=== PATIENT | female | born 1955 | race Caucasian/White ===

== ENCOUNTER 2018-01-21 12:28 | Outpatient (CLI) | payer OTHER | END 2018-01-21 12:29 | disposition home or self-care (01) | LOC: BICCT 12:28 | PROVIDERS: ATTEND Physician Assistant Surgical | DX: M54.2 Cervicalgia (principal); M54.6 Pain in thoracic spine; R29.818 Other symptoms and signs involving the nervous system; M47.896 Other spondylosis, lumbar region; M48.061 Spinal stenosis, lumbar region without neurogenic claudication; M47.892 Other spondylosis, cervical region | CPT/HCPCS: 70450; 72050; 72110; 72141; 72146; 72148 ==

== ENCOUNTER 2018-01-28 08:22 | Outpatient (CLI) | payer OTHER ==
[2018-01-28] MEDS ORDERED: Gadobenate Dimeglumine 529 MG/1 ML (20ML VIAL) ONE (14:36)
== END 2018-01-28 08:23 | disposition home or self-care (01) ==
LOC: BICMRI 08:22
PROVIDERS: ATTEND Family Medicine
DX: R51 Headache (principal); R26.0 Ataxic gait; M62.81 Muscle weakness (generalized); I67.82 Cerebral ischemia
CPT/HCPCS: 70553; A9579

== ENCOUNTER 2018-10-15 07:34 | Outpatient (CLI) | payer OTHER ==
--- NOTE | 2018-10-15 09:58 | CT ---
CT OF THE CHEST WITHOUT CONTRAST: Comparison: None. History: Low dose cancer screening protocol. 42-year smoking history. The patient quit smoking 11 mon ths ago. Productive cough. Technique: Multiple contiguous axial images were obtained in a CT of the chest without contrast per l ow dose cancer screening protocol. Sagittal and coronal reformats were performed. FINDINGS: A calcified granuloma projects over the right lower lobe. No other pulmonary nodules are seen. No pne umothorax or pleural effusions are seen. No focal infiltrates are present. The heart is normal in siz e. No hilar or mediastinal lymphadenopathy are appreciated on this limited noncontrast examination. Degenerative changes are seen in the spine. The visualized subdiaphragmatic structures and chest wall soft tissues are unremarkable. IMPRESSION: Lung RADS category 1 - negative. POS: LONIH
== END 2018-10-15 07:35 | disposition home or self-care (01) ==
LOC: CT 07:34
PROVIDERS: ATTEND Family Medicine
DX: Z87.891 Personal history of nicotine dependence (principal)
CPT/HCPCS: G0297

== ENCOUNTER 2018-10-17 13:09 | Outpatient (CLI) | payer OTHER | END 2018-10-17 13:10 | disposition home or self-care (01) | LOC: BICMAMMO 13:09 | PROVIDERS: ATTEND Family Medicine | DX: Z12.31 Encounter for screening mammogram for malignant neoplasm of breast (principal) | CPT/HCPCS: 77063; 77067 ==

== ENCOUNTER 2019-02-13 14:37 | Observation (INO) | payer OTHER ==
--- NOTE | 2019-02-13 15:22 | CT ---
Head CT without contrast 02/13/2019: COMPARISON: 01/21/2018 HISTORY: Altered mental status, confusion, falls TECHNIQUE: Axial CT imaging at 5 mm intervals from vertex through skull base without contrast FINDINGS: Imaged paranasal sinuses and mastoid air cells well-aerated. No displaced calvarial fractur e. Prominence of the ventricular system noted, stable. Mild cerebral volume loss. No intracranial hemorrhage, midline shift, or mass effect. There is a small round soft tissue density along the anter ior aspect of the parotid gland on the left measuring 5 mm, likely representing a small node. IMPRESSION: Stable prominence of the ventricular system. This could potentially be on the basis of no rmal pressure hydrocephalus in the proper clinical setting. No intracranial hemorrhage.
[2019-02-13 16:00] LABS: #Basophils 0.1 thou/uL (0.0-0.2); #Eosinphils 0.2 thou/uL (0.0-0.7); #Monocytes 0.6 thou/uL (0.11-0.59); #Neutrophils 3.5 thou/uL (1.40-6.50); %Basophils 0.9 % (0.0-1.0); %Eosinophils 2.8 % (0.0-10.0); %Lymphocytes 31.3 % (21.0-51.0); %Monocytes 9.2 % (0.0-10.0); %Neutrophils 55.8 % (42.0-75.0); Hemoglobin 14.8 g/dL (12.0-16.0); Mean Corpuscular HGB CONC 33.2 g/dL (32.0-36.0); Mean Corpuscular Volume 93.4 fL (78.0-98.0); Mean Platelet Volume 7.6 fL (7.4-10.4); Platelet Count 186 thou/uL (130-400); RBC Distribution Width 11.4 % (11.5-14.5); Red Blood Cell (RBC) Count 4.78 mill/uL (4.20-5.40); White Blood Cell (WBC) Count 6.3 thou/uL (4.8-10.8)
[2019-02-13 16:20] LABS: Acetaminophen Less than 6.0 mcg/mL (10.0-30.0); Alcohol Less than 10 mg/dL (Less than 10); Salicylate Less than 8.0 mg/dL (15.0-30.0)
[2019-02-13 16:22] LABS: ALT (SGPT) 25 U/L (8-55); AST (SGOT) 19 U/L (5-34); Albumin 3.9 g/dL (3.4-4.8); Alkaline Phosphatase 74 U/L (40-150); Anion Gap 10 mmol/L (10-20); BUN (Urea Nitrogen) 18 mg/dL (9.8-20.1); Bilirubin, Total 0.4 mg/dL (0.2-1.2); Calc. Creatinine Clearance 0 mL/min (70-130); Calcium 9.2 mg/dL (7.8-10.44); Carbon Dioxide 29 mmol/L (23-31); Chloride 100 mmol/L (98-107); Estimated GFR-MDRD 74; Globulin 2.7 g/dL (2.4-3.5); Glucose 83 mg/dL (80-115); Protein, Total 6.6 g/dL (6.0-8.3); Sodium 135 mmol/L (136-145)
[2019-02-13 18:33] LABS: Amphetamine Not Detected (NotDetected); Barbiturates Screen Not Detected (NotDetected); Benzodiazepine Screen Not Detected (NotDetected); Cocaine Metabolite Screen Not Detected (NotDetected); Medtox Control Line Valid? VALID (VALID); Medtox Reader # READER 1; Methadone Not Detected (NotDetected); Methamphetamine Not Detected (NotDetected); Opiate Screen Not Detected (NotDetected); Oxycodone Screen Not Detected (NotDetected); Phencyclidine (PCP) Not Detected (NotDetected); THC/Cannabinoid Screen Not Detected (NotDetected); Tricyclic Screen Not Detected (NotDetected)
--- NOTE | 2019-02-13 20:01 | PDOC.FPRHP ---
Addendum entered and electronically signed by Ericka Luther MD 02/14/19 00:58 : a/p: suprath. valproic acid: pt states she takes 2 250mg tabs, will dec to one 250mg tab qhs Original Note: - History of Present Illness Chief Complaint: confusion History of Present Illness: 63 yo F brought in by EMS for confusion. Was at bank this morning when per ERMD pt became confused and bank guard felt concerned so called EMS. CT brain was neg for ICH but showed possible normal pressure hydrocephalus. ERMD discussed w / neurosurg said that this could we worked up outpt however there was concern for patient stability w/ hx of confusion & falls so she was admitted. Patient says she's had longstanding hx of falls & confusion and urinary incontinence, being w/u outpt and had a brain MRI/CT scheduled for next month. She is able to perform ADLs, but has inc, instability with walker but no very recent falls. Denies paralysis, seizures, vertigo, focal deficits, recent illnesses. Pt reports she lies alone with no family. Says it's difficult to take care of herself sometimes. - Allergies/Adverse Reactions Allergies Allergy/AdvReac Type Severity Reaction Status Date / Time No Known Drug Allergies Allergy Verified 02/13/19 22:42 - Home Medications Medication Instructions Recorded Confirmed Type Bupropion HCl [buPROPion HCl XL] 150 mg PO BID 10/22/15 02/14/19 History Citalopram Hydrobromide 40 mg PO DAILY 10/22/15 02/13/19 History [Citalopram HBr] Divalproex Sodium ER [Depakote ER] 2 tab PO HS 02/13/19 02/13/19 History Lisinopril 12.5 mg PO DAILY 02/13/19 02/13/19 History Celecoxib [Celebrex] 50 mg PO BID 02/14/19 02/14/19 History Cholecalciferol (Vitamin D3) 1 tab PO DAILY 02/14/19 02/14/19 History [Vitamin D3] traMADol HCl [Tramadol HCl] 1 tab PO PRN PRN 02/14/19 02/14/19 History - History PMHx: bipolar dis., HTN, ulcerative colitis, COPD, HLD PSHx: appendectomy, foot fracture repair FHx: HTN Social: Former 20 pack year history, denies etoh of drug use - Review of Systems General: denies: fever/chills, weight/appetite/sleep changes Eyes: denies: vision changes ENT: denies: nasal congestion, rhinorrhea Respiratory: denies: cough, congestion, shortness of breath Cardiovascular: denies: chest pain, palpitation Gastrointestinal: denies: nausea, vomiting, diarrhea, constipation, GI bleeding Genitourinary: reports: incontinence. denies: dysuria Skin: denies: rashes Musculoskeletal: denies: pain Neurological: reports: other (instability,falls). denies: seizure Psychological: denies: anxiety, depression - Vital signs BP: [116/73] HR: [80] RR: [18] Tmax: [98.1 Pox: [97]% on [RA] Wt: [100kg] - Physical Exam Constitutional: NAD, awake, alert and oriented HEENT: normocephalic and atraumatic, PERRLA Neck: supple, FROM, trachea midline Chest: no-tender to palpation Heart: normal S1/S2 -Heart: systolic murmur Lungs: CTAB, no respiratory distress, no wheezing Abdomen: soft, non-tender, bowel sounds present Musculoskeletal: normal structure, normal tone Neurological: no focal deficit, CN II-XII intact Skin: no rash/lesions, good turgor, capillary refill <2 seconds Heme/Lymphatic: no unusual bruising or bleeding Psychiatric: normal mood and affect, good judgment and insight Additional comment: walking with caution FMR H&P: Results - Labs Result Diagrams: 02/13/19 15:50 02/14/19 06:02 Lab results: WBC 6.3 thou/uL (4.8-10.8) 02/13/19 15:50 Hgb 14.8 g/dL (12.0-16.0) 02/13/19 15:50 Hct 44.7 % (36.0-47.0) 02/13/19 15:50 MCV 93.4 fL (78.0-98.0) 02/13/19 15:50 Plt Count 186 thou/uL (130-400) 02/13/19 15:50 Neutrophils % 55.8 % (42.0-75.0) 02/13/19 15:50 Sodium 135 mmol/L (136-145) L 02/13/19 15:50 Potassium 4.0 mmol/L (3.5-5.1) 02/13/19 15:50 Chloride 100 mmol/L (98-107) 02/13/19 15:50 Carbon Dioxide 29 mmol/L (23-31) 02/13/19 15:50 BUN 18 mg/dL (9.8-20.1) 02/13/19 15:50 Creatinine 0.79 mg/dL (0.6-1.1) 02/13/19 15:50 Glucose 83 mg/dL (80-115) 02/13/19 15:50 Calcium 9.2 mg/dL (7.8-10.44) 02/13/19 15:50 Total Bilirubin 0.4 mg/dL (0.2-1.2) 02/13/19 15:50 AST 19 U/L (5-34) 02/13/19 15:50 ALT 25 U/L (8-55) 02/13/19 15:50 Alkaline Phosphatase 74 U/L (40-150) 02/13/19 15:50 Serum Total Protein 6.6 g/dL (6.0-8.3) 02/13/19 15:50 Albumin 3.9 g/dL (3.4-4.8) 02/13/19 15:50 - Radiology Interpretation Other Status: report reviewed by me Additional comment: brain CT showing neg for ICH, suspected normal pressure hydrocephalus FMR H&P: A/P - Problem List (1) Normal pressure hydrocephalus Current Visit: Yes Status: Acute Code(s): G91.2 - (IDIOPATHIC) NORMAL PRESSURE HYDROCEPHALUS (2) Bipolar II disorder Current Visit: Yes Status: Acute Code(s): F31.81 - BIPOLAR II DISORDER - Plan #Normal pressure hydrocephalus -CT brain showing likely NPH which is consistent with history findings -Neurosurgery consulted, will follow along -Concern for patient unable to care for herself at home, thus making her unsafe to discharge. Will admit and work w/ PT and CM to see best place for patient placement -Admit to medical/obs #Bipolar II Disorder, supratherapeutic depakote level -continue home meds -On valproic acid, levels high will dec dose to 2 tabs qhs (in centricity taking 3 tabs qhs) -Recheck level before next dose #COPD -duonebs PRN #ulcerative colitis - aware dvt ppx: lovenox diet:HH dispo: <2 mn discussed w/ dr. begum FMR H&P: Upper Level - Pertinent history 63 yo CF with PMH of bipolar disorder, ataxic gait and multiple recent falls presenting for some confusion and unsteadiness. Pt reportedly at bank when the director bioinformatics noted she was acting oddly and called EMS. Workup has revealed NPH. ERMD consulted neurosurgery who said can likely be worked up outpatient. Pt, however , lives alone and is not safe for discharge home. - Pertinent findings VSS Gen: confused, however, very pleasant and in NAD CV: RRR Resp: CTAB - Plan Date/Time: 02/13/192000 I, Burt Singletary MD PGY3, have evaluated this patient and agree with findings/ plan as outlined by finance intern resident. Pertinent changes/additions are listed here. 1. Normal Pressure Hydrocephalus -Pt presents with long standing history of clinical symptoms consistent with NPH including cognitive impairment, gait dysfunction, and urinary incontinence. -CT head shows findings consistent with NPH and neurosurgery was consulted by ERMManuela. Recommendation was made to continue work up in outpatient setting, however , pt lives alone and is likely not safe for discharge home. -Will observe overnight and attempt to coordinate care with neurosurgery and case management in the AM regarding disposition for patient care. 2. Supratherapeutic Valproate Level -Decrease dose and continue to monitor. FULL code PPx: SCDs for VTE, no GI indicated. disposition: Admit to observation for anticipated length of stay less than two midnights, pending clinical course. Addendum - Attending - Attending Attestation Date/Time: 02/14/19 0818 I personally evaluated the patient and discussed the management with Dr. Luther last night. I agree with the History, Examination, Assessment and Plan documented above with any addition or exceptions noted below. Patient is not able to safely care for herself independently. Appreciate Neurosurg assessment and intervention as able.
[2019-02-13] MEDS ORDERED: Ondansetron PF 4 MG/2 ML Vial IVP PRN (21:15)
[2019-02-13] MEDS ORDERED: Acetaminophen 325 MG TAB PO PRN (21:15)
[2019-02-13] MEDS ORDERED: Ondansetron ODT 4 MG TAB SL PRN (21:15)
[2019-02-13 21:20] VITALS: BMI 39.3
[2019-02-14 00:02] LABS: Folate (Folic Acid) 5.9 ng/mL (7.0-31.4)
--- NOTE | 2019-02-14 06:47 | PDOC.FM ---
- Subjective Subjective: Ms. Coburn was feeling well this morning. Ambulated to bathroom with assist. Notes she is taking depakote pills as prescribed TID. Says if she wearing a pad then she is not incontinent. Is in a difficult financial situation. Unemployed and says she could be homeless within a few weeks. - Objective MAR Reviewed: Yes Vital Signs & Weight: Vital Signs (12 hours) Temp Pulse Resp BP Pulse Ox 02/14/19 05:01 97.9 F 81 16 114/78 94 L 02/14/19 00:43 97.7 F 80 16 101/61 95 02/13/19 21:04 98.0 F 92 18 105/62 96 Weight Weight 100.698 kg I&O: 02/12/19 02/13/19 02/14/19 06:59 06:59 06:59 Intake Total 520 Balance 520 Result Diagrams: 02/13/19 15:50 02/14/19 06:02 Phys Exam - Physical Examination Constitutional: NAD Respiratory: clear to auscultation bilateral Cardiovascular: RRR, no significant murmur Gastrointestinal: soft, non-tender, no distention Musculoskeletal: no edema unsteady gait Psychiatric: normal affect Skin: normal turgor Dx/Plan (1) Bipolar II disorder Code(s): F31.81 - BIPOLAR II DISORDER Status: Acute (2) Normal pressure hydrocephalus Code(s): G91.2 - (IDIOPATHIC) NORMAL PRESSURE HYDROCEPHALUS Status: Acute - Plan Plan: Normal pressure hydrocephalus -CT brain showing likely NPH which is consistent with symptoms noted in history -Neurosurgery consulted, will follow along -Concern for patient unable to care for herself at home, thus making her unsafe to discharge. Will admit and work w/ PT and CM to see best place for patient placement -Admit to medical/obs Bipolar II Disorder, supratherapeutic depakote level -continue home meds -On valproic acid, levels high dose decreased to 1 tabs qhs (in centricity taking 3 tabs qhs, patient was taking 2 tabs per night team but she now denies that today). -Recheck level before next dose COPD -duonebs PRN dvt ppx: lovenox diet: Addendum - Attending - Attending Attestation Date/Time: 02/14/19 4212 I personally evaluated the patient and discussed the management with Dr. Romo I agree with the History, Examination, Assessment and Plan documented above with any addition or exceptions noted below. Patient lucid this am MMSE with mild cognitive deficit . Patient lives alone in [place] with recent financial stressors. History of recent urinary incontinence and wide based gait suggest possible NPH and trial of therapeutic large volume LP for clinical benefit suggested as outpatient by Neurosurgery. Will complete Dementia work up if not previously done and consult CM for placement options. Bipolar d/o managed by Dr Alva.
[2019-02-14 07:05] LABS: Anion Gap 10 mmol/L (10-20); BUN (Urea Nitrogen) 22 mg/dL (9.8-20.1); Calc. Creatinine Clearance 120 mL/min (70-130); Calcium 8.8 mg/dL (7.8-10.44); Carbon Dioxide 28 mmol/L (23-31); Chloride 103 mmol/L (98-107); Estimated GFR-MDRD 76; Glucose 119 mg/dL (80-115); Potassium 4.1 mmol/L (3.5-5.1); Sodium 137 mmol/L (136-145)
[2019-02-14] MEDS: Lisinopril 5 MG TAB PO SCH (08:39)
[2019-02-14] MEDS: Citalopram 20 MG TAB PO SCH (08:39)
[2019-02-14] MEDS: Enoxaparin Sodium 40 MG/0.4 ML SYRINGE SC SCH (08:40)
[2019-02-14] MEDS: Bupropion 150 MG XL TAB PO SCH ×2 (08:48→20:08)
--- NOTE | 2019-02-14 13:22 | PRG ---
DATE OF SERVICE: 02/14/2019 This is a 30-minute initial hospital visit note, in which 30 minutes were spent reviewing the imaging, record, evaluation, and examination of the patient, formulation of plan. Greater than 50% time spent in counseling on Vanessa Coburn. Ms. Coburn is a very pleasant 63-year-old woman admitted for progressive confusion. Head CT demonstrates prominence of the ventricular system similar to a prior head CT and the patient does endorse that she has had some gait abnormality. There is concern of normal-pressure hydrocephalus while she has a nonfocal exam. What I would like to do is arrange for followup in outpatient psych and go over the imaging with the patient, and we can arrange for formal normal-pressure hydrocephalus workup, which would include high-volume spinal tap and potential shunting if improved, if the patient demonstrates clinical improvement. I have also discussed her care with her Family Medicine colleagues and they will make sure that there are no other areas of concern regarding metabolic causes of her confusion. I will arrange followup in my clinic. She may be dismissed to appropriate disposition whenever deemed preferable by our medical colleagues. Job ID: [id number]
--- NOTE | 2019-02-15 06:51 | PDOC.FM ---
- Subjective Subjective: Ms. Coburn is feeling well this morning. No events overnight. Still unsteady gait. - Objective Vital Signs & Weight: Vital Signs (12 hours) Temp Pulse Resp BP BP Pulse Ox 02/15/19 06:10 97.4 F L 74 16 136/86 95 02/15/19 00:05 97.7 F 74 16 106/74 95 02/14/19 19:34 97.8 F 74 16 118/72 95 02/14/19 19:24 97.8 F 74 16 118/72 95 Weight Weight 100.698 kg I&O: 02/13/19 02/14/19 02/15/19 06:59 06:59 06:59 Intake Total 520 1260 Balance 520 1260 Result Diagrams: 02/13/19 15:50 02/14/19 06:02 Phys Exam - Physical Examination Constitutional: NAD Respiratory: no wheezing, clear to auscultation bilateral Cardiovascular: RRR, no significant murmur Gastrointestinal: soft, non-tender, positive bowel sounds Musculoskeletal: no edema Neurological: moves all 4 limbs wide based shuffling gait Lymphatic: no nodes Psychiatric: normal affect Skin: normal turgor Dx/Plan (1) Bipolar II disorder Code(s): F31.81 - BIPOLAR II DISORDER Status: Acute (2) Normal pressure hydrocephalus Code(s): G91.2 - (IDIOPATHIC) NORMAL PRESSURE HYDROCEPHALUS Status: Acute - Plan Plan: Normal pressure hydrocephalus -CT brain showing likely NPH which is consistent with symptoms noted in history -Neurosurgery consulted, recommend outpatient workup -Concern for patient unable to care for herself at home, she is weak with unsteady gait. Patient yesterday said she wanted to go home instead of rehab so discharge was prepared. However after more discussion will work with case management Bipolar II Disorder, supratherapeutic depakote level -continue home meds -Repeat depakote level in normal range, 60 COPD -duonebs PRN H/p ulcerative colitis - not on any home medications dvt ppx: lovenox diet:HH Dispo: will discuss safe discharge plan with case management Addendum - Attending - Attending Attestation Date/Time: 02/15/19 1013 I personally evaluated the patient and discussed the management with Dr. Romo. I agree with the History, Examination, Assessment and Plan documented above with any addition or exceptions noted below. NPH Recurrent falls- most recently 2-3 days ago. Lives alone without support. Poor home status with no support -Neurosurg recommends outpatient workup. However per PT she is unsafe to go home. No family or friend support and a fall risk. Evaluated by IP rehab today but insurance will need 2-3 days for approval.
[2019-02-15] MEDS: Lisinopril 5 MG TAB PO SCH (09:08)
[2019-02-15] MEDS: Bupropion 150 MG XL TAB PO SCH ×2 (09:08→20:14)
[2019-02-15] MEDS: Citalopram 20 MG TAB PO SCH (09:09)
[2019-02-15] MEDS: Enoxaparin Sodium 40 MG/0.4 ML SYRINGE SC SCH (09:09)
[2019-02-15] MEDS: Folic Acid 1 MG TAB PO SCH (09:10)
--- NOTE | 2019-02-15 14:21 | EKG ---
Test Reason : AMS Blood Pressure : / mmHG Vent. Rate : 091 BPM Atrial Rate : 091 BPM P-R Int : 160 ms QRS Dur : 070 ms QT Int : 366 ms P-R-T Axes : 054 018 061 degrees QTc Int : 450 ms Normal sinus rhythm Septal infarct , age undetermined Abnormal ECG Confirmed by BEATRIZ CHICAS DO ([id number]), makeup editor JOEL LAWRENCE ([id number]) on 02/15/2019 2:20:54 PM Referred By: CARLEE Confirmed By:BEATRIZ CHICAS DO
--- NOTE | 2019-02-16 07:01 | PDOC.FM ---
- Subjective Subjective: Ms. Coburn reports some R shoulder pain this morning. Has FROM of this shoulder. Uses capsaicin at home which typically helps. Feels gait is improving. - Objective Vital Signs & Weight: Vital Signs (12 hours) Temp Pulse Resp BP BP Pulse Ox 02/16/19 04:00 97.7 F 86 18 107/74 96 02/16/19 00:49 97.8 F 75 18 131/81 95 02/15/19 19:12 97.6 F 75 18 132/86 95 02/15/19 19:00 97.6 F 75 18 132/86 95 Weight Weight 100.698 kg I&O: 02/14/19 02/15/19 02/16/19 06:59 06:59 06:59 Intake Total 520 1260 2280 Balance 520 1260 2280 Result Diagrams: 02/13/19 15:50 02/14/19 06:02 Phys Exam - Physical Examination Constitutional: NAD HEENT: moist MMs Respiratory: no wheezing, clear to auscultation bilateral Cardiovascular: RRR, no significant murmur Gastrointestinal: soft, non-tender, positive bowel sounds Musculoskeletal: no edema R shoulder FROM. tender to palpation. Psychiatric: normal affect Skin: normal turgor Dx/Plan (1) Bipolar II disorder Code(s): F31.81 - BIPOLAR II DISORDER Status: Acute (2) Normal pressure hydrocephalus Code(s): G91.2 - (IDIOPATHIC) NORMAL PRESSURE HYDROCEPHALUS Status: Acute - Plan Plan: Normal pressure hydrocephalus -CT brain showing likely NPH which is consistent with symptoms noted in history -Neurosurgery consulted, recommend outpatient workup. PT to do NPH testing. -Patient unsafe to go home d/t recurrent falls, unsteady gait - continue to work with PT Bipolar II Disorder, supratherapeutic depakote level -Repeat depakote level in normal range, 60 Unsteady gait COPD -duonebs PRN H/p ulcerative colitis - not on any home medications dvt ppx: lovenox diet:HH Dispo: plan to discharge to rehab when insurance approves, possibly Sunday. Addendum - Attending - Attending Attestation Date/Time: 02/16/19 6358 I personally evaluated the patient and discussed the management with Dr. Romo. I agree with the History, Examination, Assessment and Plan documented above with any addition or exceptions noted below. NPH- gait unsteady and deemed unsafe for home. Inpatient rehab has evaluated and waiting for insurance verification.
[2019-02-16] MEDS ORDERED: Citalopram 20 MG TAB PO SCH (07:52)
[2019-02-16] MEDS: Bupropion 150 MG XL TAB PO SCH ×2 (07:53→20:48)
[2019-02-16] MEDS: Lisinopril 5 MG TAB PO SCH (07:54)
[2019-02-16] MEDS: Folic Acid 1 MG TAB PO SCH (07:55)
[2019-02-16] MEDS: Enoxaparin Sodium 40 MG/0.4 ML SYRINGE SC SCH (07:55)
[2019-02-16] MEDS: Capsaician 0.025% Cream 60 gm Tube TOP SCH ×3 (11:27→20:49)
[2019-02-16] MEDS: Citalopram 20 MG TAB PO SCH (20:48)
--- NOTE | 2019-02-17 06:38 | PDOC.FM ---
Addendum entered and electronically signed by Apoorva Romo DO 02/17/19 12:04 : Since patient is now able to ambulate around room with walker without assist, plan is for patient to discharge home. She will need a walker at home. Will discuss with case management possibility of home health or outpatient PT, though finances are tight for patient. Original Note: - Subjective Subjective: Ms. Coburn has no new concerns this morning. Says she is now able to ambulate around room and to bathroom with walker. - Objective Vital Signs & Weight: Vital Signs (12 hours) Temp Pulse Resp BP Pulse Ox 02/16/19 20:33 98.4 F 85 18 99/68 94 L Weight Weight 100.698 kg I&O: 02/15/19 02/16/19 02/17/19 06:59 06:59 06:59 Intake Total 1260 2280 2940 Balance 1260 2280 2940 Result Diagrams: 02/13/19 15:50 02/14/19 06:02 Phys Exam - Physical Examination Constitutional: NAD Respiratory: no wheezing, clear to auscultation bilateral Cardiovascular: RRR Gastrointestinal: soft, non-tender Musculoskeletal: no edema Psychiatric: normal affect Skin: normal turgor Dx/Plan (1) Bipolar II disorder Code(s): F31.81 - BIPOLAR II DISORDER Status: Acute (2) Normal pressure hydrocephalus Code(s): G91.2 - (IDIOPATHIC) NORMAL PRESSURE HYDROCEPHALUS Status: Acute - Plan Plan: Normal pressure hydrocephalus -CT brain showing likely NPH which is consistent with symptoms noted in history -Neurosurgery consulted, recommend outpatient workup. PT to do NPH testing. -Patient unsafe to go home d/t recurrent falls, unsteady gait -continue to work with PT Bipolar II Disorder, supratherapeutic depakote level now subtherapeutic -Repeat depakote level low last night. Increased dose to 500mg qhs tonight. Unsteady gait COPD -duonebs PRN H/p ulcerative colitis - not on any home medications dvt ppx: lovenox diet:HH Dispo: plan to discharge to rehab when insurance approves Addendum - Attending - Attending Attestation Date/Time: 02/17/19 7722 I personally evaluated the patient and discussed the management with Dr. Romo I agree with the History, Examination, Assessment and Plan documented above with any addition or exceptions noted below. NPH- will need outpatient workup/treatment per NeuroSurg. Recurrent falls- with PT has mobility improvement. Patient feels she is safe to go home with walker provided. Close o/p follow-up.
[2019-02-17] MEDS: Enoxaparin Sodium 40 MG/0.4 ML SYRINGE SC SCH (08:10)
[2019-02-17] MEDS: Lisinopril 5 MG TAB PO SCH (08:10)
[2019-02-17] MEDS: Folic Acid 1 MG TAB PO SCH (08:11)
[2019-02-17] MEDS: Capsaician 0.025% Cream 60 gm Tube TOP SCH ×3 (08:12→20:44)
[2019-02-17] MEDS: Bupropion 150 MG XL TAB PO SCH ×2 (08:14→20:44)
[2019-02-17] MEDS: Citalopram 20 MG TAB PO SCH (20:44)
--- NOTE | 2019-02-18 07:06 | PDOC.FM ---
- Subjective Subjective: Ms. Coburn says the paperwork was not ready yesterday for her to go home. She has no concerns. Rolling walker for home in room. - Objective Vital Signs & Weight: Vital Signs (12 hours) Temp Pulse Resp BP Pulse Ox 02/17/19 19:28 97.4 F L 89 18 128/83 95 Weight Weight 100.698 kg I&O: 02/17/19 02/18/19 02/19/19 06:59 06:59 06:59 Intake Total 2940 1400 Balance 2940 1400 Result Diagrams: 02/13/19 15:50 02/14/19 06:02 Phys Exam - Physical Examination Constitutional: NAD Respiratory: clear to auscultation bilateral Cardiovascular: RRR, no significant murmur Gastrointestinal: soft, positive bowel sounds Musculoskeletal: no edema Neurological: normal sensation Skin: normal turgor Dx/Plan (1) Bipolar II disorder Code(s): F31.81 - BIPOLAR II DISORDER Status: Acute (2) Normal pressure hydrocephalus Code(s): G91.2 - (IDIOPATHIC) NORMAL PRESSURE HYDROCEPHALUS Status: Acute - Plan Plan: Normal pressure hydrocephalus -CT brain showing likely NPH which is consistent with symptoms noted in history -Neurosurgery consulted, recommend outpatient workup. -Patient ambulation improved. Has walker available for discharge home. Bipolar II Disorder, supratherapeutic depakote level now subtherapeutic -Repeat depakote level low so continue increased dose to 500mg qhs Unsteady gait COPD -duonebs PRN H/p ulcerative colitis - not on any home medications dvt ppx: lovenox diet: Dispo: discharge today, order was placed yesterday Addendum - Attending - Attending Attestation Date/Time: 02/18/19 0143 I personally evaluated the patient and discussed the management with Dr. Romo. I agree with the History, Examination, Assessment and Plan documented above with any addition or exceptions noted below. Stable for d/c with walker and close f/u with NS and PCP
[2019-02-18 07:23] VITALS: BP 108/75; TEMP 98
[2019-02-18] MEDS: Enoxaparin Sodium 40 MG/0.4 ML SYRINGE SC SCH (08:19)
[2019-02-18] MEDS: Capsaician 0.025% Cream 60 gm Tube TOP SCH (08:19)
[2019-02-18] MEDS: Lisinopril 5 MG TAB PO SCH (08:19)
[2019-02-18] MEDS: Bupropion 150 MG XL TAB PO SCH (08:19)
[2019-02-18] MEDS: Folic Acid 1 MG TAB PO SCH (08:20)
--- NOTE | 2019-02-19 13:37 | DIS ---
DATE OF ADMISSION: 02/13/2019 DATE OF DISCHARGE: 02/18/2019 RESIDENT: Apoorva Romo DO ADMITTING ATTENDING: Ye Tellez MD DISCHARGE ATTENDING: Grace Ruiz MD CONSULT: Neurosurgery, Jak Smith PA-C PROCEDURES: 02/13/[address] showed stable prominence of ventricular system. No intracranial hemorrhage. This could potentially be on the basis of normal-pressure hydrocephalus in the proper clinical setting. PRIMARY DIAGNOSES: 1. Normal-pressure hydrocephalus. 2. Bipolar 2 disorder with supratherapeutic Depakote level. 3. Unsteady gait. SECONDARY DIAGNOSES: 1. Chronic obstructive pulmonary disease. 2. Ulcerative colitis. DISCHARGE MEDICATIONS: 1. Citalopram 40 mg p.o. daily. 2. Bupropion 150 mg p.o. b.i.d. 3. Lisinopril 12.5 mg p.o. daily. 4. Depakote ER 500 mg p.o. at bedtime. 5. Tramadol 50 mg p.o. p.r.n. 6. Vitamin D3 of 4000 unit one tab p.o. daily. 7. Celecoxib 50 mg p.o. b.i.d. 8. Folic acid 1 mg p.o. daily. 9. Capsaicin cream 60 g tube topical t.i.d. DISCONTINUED MEDICATIONS: None. HISTORY OF PRESENT ILLNESS: A 63-year-old female presented via EMS for confusion, instability in gait, recent frequent falls, urinary incontinence. This was being worked up as an outpatient and she reported that she had imaging scheduled for the next month. The patient was admitted and Neurosurgery was consulted for normal-pressure hydrocephalus. Dr. Cintron saw this patient as he has also seen her in the outpatient setting as well and recommended outpatient management. The patient was stable from that standpoint, however, Physical and Occupational Therapy were consulted and physical therapist recommended rehab if possible. The patient initially was agreeable to this and that process was started for insurance approval. However, throughout hospitalization, her gait continued to improve and she was deemed safe to ambulate with a walker at home. The patient was discharged home to continue outpatient workup for this. Additionally, the patient's Depakote level was supratherapeutic at first check. There was confusion about what home dosing patient was actually taking. Recommend outpatient Depakote level checks. Additionally, folate level was low and patient was started on supplementation for this. DISPOSITION: Stable. DISCHARGE INSTRUCTIONS: 1. Location: Home. 2. Diet: Regular. 3. Activity: As tolerated with walker. 4. Followup: Follow up with PCP, Dr. Ivana Caba at [facility] within [address] days. Follow up with Dr. Cintron, Neurosurgery. Job ID: [id number]
== END 2019-02-18 12:18 | disposition home or self-care (01) ==
LOC: ERS 14:37 → T4-B 19:25
PROVIDERS: ADMIT Family Medicine; ATTEND Family Medicine
DX: G91.2 (Idiopathic) normal pressure hydrocephalus (principal); F31.81 Bipolar II disorder; I10 Essential (primary) hypertension; J44.9 Chronic obstructive pulmonary disease, unspecified; E78.5 Hyperlipidemia, unspecified; K52.9 Noninfective gastroenteritis and colitis, unspecified; Z79.899 Other long term (current) drug therapy; Z87.891 Personal history of nicotine dependence
CPT/HCPCS: 36415; 70450; 80048; 80053; 80164; 80306; 80307; 82607; 82746; 84443; 85025; 93005; 96372; 96374; G0378; J1650; J2405

== ENCOUNTER 2019-05-28 12:37 | Outpatient (CLI) | payer OTHER ==
--- NOTE | 2019-05-28 13:36 | RAD ---
EXAM: 4 views of the lumbosacral spine HISTORY: Low back pain COMPARISON: None FINDINGS: 4 views of the lumbosacral spine shows normal height and alignment of the vertebral bodies without fracture or subluxation. Moderate degenerative changes are seen with intervertebral disc space narrowing and osteophyte formation. This is most prominent at L4/5. Alignment is unchanged with flexion and extension. The sacroiliac joints are unremarkable. IMPRESSION: Moderate degenerative changes of lumbar spine with unchanged alignment with bending.
--- NOTE | 2019-05-28 13:38 | RAD ---
EXAM: 4 views of the cervical spine HISTORY: Neck pain COMPARISON: None FINDINGS: AP, lateral, flexion/extension, and open mouth odontoid views of the cervical spine shows n ormal height and alignment of the vertebral bodies without fracture or subluxation. Moderate degenerative changes are seen throughout the cervical spine with intervertebral disc space narrowing and osteophyte formation. No prevertebral soft tissue swelling is seen. Alignment is unchanged with flexion and extension. IMPRESSION: Degenerative changes of the cervical spine with unchanged alignment with bending
--- NOTE | 2019-05-28 14:24 | MRI ---
MRI cervical spine without contrast: 05/28/2019 COMPARISON: None HISTORY: Neck pain, neck stiffness, frequent falls TECHNIQUE: Multiplanar, multisequence MR imaging of the cervical spine obtained without contrast FINDINGS: Mild anterolisthesis at C3-4 measures 3-4 mm. C2-3: Mild bilateral facet hypertrophy. No significant central canal or neural foraminal stenosis C3-4: There is disc space narrowing and disc desiccation. There is bilateral facet and uncovertebral osteophyte formation, left greater than right. There is moderate left and mild right neural foraminal stenosis. C4-5: There is disc space narrowing and disc desiccation with mild disc bulge partially effacing the ventral thecal sac and causing a mild degree of central canal stenosis. There is bilateral facet and uncovertebral osteophyte formation, primarily left-sided. There is mild/moderate left neural fora jeana stenosis. No significant right neural foraminal stenosis C5-6: There is disc space narrowing, disc desiccation, and disc osteophyte complex. This partially ef faces the ventral thecal sac and leads to a mild degree of central canal stenosis. There is anterior osteophyte formation. Bilateral facet and uncovertebral osteophyte formation noted, right gr eater than left, with moderate bilateral neural foraminal stenosis. C6-7: Disc space narrowing, disc desiccation, and mild disc bulge present with no significant central canal stenosis. Facet and uncovertebral osteophyte formation on the left noted with mild left neural foraminal stenosis. There is also mild right neural foraminal stenosis on the basis of facet a nd uncovertebral osteophyte formation C7-T1: No significant central canal or neural foraminal stenosis. There is no focal area of abnormal signal intensity identified within the cervical cord. IMPRESSION: Multilevel degenerative change within the cervical spine as detailed above. Transcribed Date/Time: 05/28/2019 3:58 PM
--- NOTE | 2019-05-28 14:49 | MRI ---
Thoracic spine MRI: 05/28/2019 COMPARISON: None HISTORY: Chronic low back pain with occasional mid back pain, frequent falls TECHNIQUE: Multiplanar multisequence MR imaging of the thoracic spine is obtained without contrast FINDINGS: The sagittal STIR imaging demonstrates no focal area of osseous marrow edema. There is no s ignificant anterolisthesis or retrolisthesis noted within the thoracic spine. T1-2: Unremarkable T2-3: Mild bilateral facet hypertrophy with no significant central canal or neural foraminal stenosis T3-4: Unremarkable T4-5: There is disc space narrowing disc desiccation and mild disc bulge with partial effacement of t he ventral thecal sac. Mild central canal stenosis. There is facet hypertrophy with mild right neural foraminal stenosis. No significant left neural foraminal stenosis T5-6: Unremarkable. T6-7: Unremarkable T7-8: Unremarkable T8-9: Unremarkable T9-10: Unremarkable T10-11: Unremarkable T11-12: Mild left neural foraminal stenosis on the basis of facet hypertrophy with no significant geovanna tral canal or right neural foraminal stenosis T12-L1: Unremarkable. There is multilevel anterior osteophyte formation noted throughout the thoracic spine on the right fr om the T4-5 level through the T12-L1 level. No evidence for acute fracture is seen. No focal area of abnormal signal intensity within the imaged spinal cord. IMPRESSION: Mild thoracic spine degenerative changes as detailed above. Findings are most significant at C4-5. Transcribed Date/Time: 05/28/2019 4:01 PM
== END 2019-05-28 12:38 | disposition home or self-care (01) ==
LOC: BICMRI 12:37
PROVIDERS: ATTEND Surgery
DX: M54.2 Cervicalgia (principal); R29.6 Repeated falls; M47.812 Spondylosis without myelopathy or radiculopathy, cervical region; M47.816 Spondylosis without myelopathy or radiculopathy, lumbar region; M47.814 Spondylosis without myelopathy or radiculopathy, thoracic region
CPT/HCPCS: 72050; 72110; 72141; 72146

== ENCOUNTER 2019-07-30 13:30 | Emergency (ER) | payer OTHER ==
[2019-07-30 16:49] LABS: #Eosinphils 0.1 thou/uL (0.0-0.7); #Monocytes 0.6 thou/uL (0.11-0.59); #Neutrophils 8.9 thou/uL (1.40-6.50); %Basophils 0.3 % (0.0-1.0); %Lymphocytes 23.6 % (21.0-51.0); %Neutrophils 70.1 % (42.0-75.0); Hemoglobin 15.5 g/dL (12.0-16.0); Mean Corpuscular HGB CONC 34.1 g/dL (32.0-36.0); Mean Corpuscular Volume 93.8 fL (78.0-98.0); Mean Platelet Volume 7.1 fL (7.4-10.4); Platelet Count 261 thou/uL (130-400); RBC Distribution Width 11.7 % (11.5-14.5); Red Blood Cell (RBC) Count 4.84 mill/uL (4.20-5.40); White Blood Cell (WBC) Count 12.7 thou/uL (4.8-10.8)
[2019-07-30 17:08] LABS: ALT (SGPT) 32 U/L (8-55); AST (SGOT) 12 U/L (5-34); Albumin 4.4 g/dL (3.4-4.8); Alkaline Phosphatase 140 U/L (40-110); Anion Gap 13 mmol/L (10-20); BUN (Urea Nitrogen) 25 mg/dL (9.8-20.1); Bilirubin, Total 0.4 mg/dL (0.2-1.2); Calc. Creatinine Clearance 0 mL/min (70-130); Calcium 9.8 mg/dL (7.8-10.44); Carbon Dioxide 26 mmol/L (23-31); Chloride 98 mmol/L (98-107); Estimated GFR-MDRD 71; Globulin 3.4 g/dL (2.4-3.5); Glucose 141 mg/dL (80-115); Potassium 4.1 mmol/L (3.5-5.1); Protein, Total 7.8 g/dL (6.0-8.3); Sodium 133 mmol/L (136-145)
[2019-07-30] MEDS ORDERED: Ketorolac Tromethamine 30 MG/ML VIAL ONE (17:15)
[2019-07-30 17:30] LABS: Bilirubin Negative (Negative); Blood, Urine Negative (Negative); Clarity Clear (Clear); Glucose, Urine (Dipstick) Normal (Negative); Leukocyte Negative Leu/uL (Negative); Nitrite Negative (Negative); Protein, Urine (Dipstick) 20 mg/dL (Neg-Trace); Urobilinogen Normal mg/dL (Less than 2)
[2019-07-30] MEDS ORDERED: ISOVUE-370 76%-LOCM 1 ML ONE (18:01)
--- NOTE | 2019-07-30 18:24 | CT ---
EXAM: CT ABDOMEN AND PELVIS HISTORY: Right upper quadrant pain. Right flank pain. COMPARISON: None. Procedure: Multiple contiguous axial images were obtained and a CT of the abdomen and pelvis with IV contrast. C oronal reformats were performed. FINDINGS: Lower Chest: Calcified granuloma in the right lower lobe Vessels: Normal caliber aorta Heart: Normal heart size Abdomen: Portal vein:Patent Gallbladder: No calcified gallstones. Normal caliber wall. Liver: Diffuse hypoattenuation due to hepatic steatosis. Small enhancing focus in the left hepatic lo be measuring 0.6 cm may represent a flash filling hemangioma. Pancreas: within normal limits. Spleen: within normal limits. Adrenals: within normal limits. Kidneys: Symmetric enhancement. Bilaterally no obstructive uropathy. Peritoneum: No ascites or free air, no fluid collection. Bowel: Limited evaluation due to the lack of oral contrast administration. No small bowel obstruction . Unremarkable ileocecal junction. Surgically absent appendix. Scattered fecal material in a nondistended, nondilated colon. Mesentery and Retroperitoneum: No enlarged mesenteric or retroperitoneal lymph nodes. Abdominal Wall: Small umbilical hernia containing mesenteric fat Pelvis: Reproductive Organs: Reproductive organs are unremarkable. Pelvis: No mass, lymphadenopathy, free air or free fluid. Bladder: within normal limits. Bones: within normal limits. IMPRESSION: No evidence of acute intraabdominal\pelvic abnormality.
[2019-07-30 18:41] LABS: #Basophils 0.1 thou/uL (0.0-0.2); #Eosinphils 0.1 thou/uL (0.0-0.7); #Lymphocytes 2.5 thou/uL (1.20-3.40); #Monocytes 0.8 thou/uL (0.11-0.59); #Neutrophils 7.1 thou/uL (1.40-6.50); %Basophils 0.5 % (0.0-1.0); %Eosinophils 1.3 % (0.0-10.0); %Lymphocytes 23.5 % (21.0-51.0); %Monocytes 7.3 % (0.0-10.0); %Neutrophils 67.3 % (42.0-75.0); Hemoglobin 14.2 g/dL (12.0-16.0); Mean Corpuscular Hemoglobin 31.9 pg (27.0-31.0); Mean Corpuscular Volume 93.8 fL (78.0-98.0); Platelet Count 223 thou/uL (130-400); RBC Distribution Width 11.6 % (11.5-14.5); Red Blood Cell (RBC) Count 4.44 mill/uL (4.20-5.40); White Blood Cell (WBC) Count 10.6 thou/uL (4.8-10.8)
[2019-07-30 19:02] LABS: ALT (SGPT) 29 U/L (8-55); AST (SGOT) 12 U/L (5-34); Albumin 3.9 g/dL (3.4-4.8); Alkaline Phosphatase 121 U/L (40-110); Anion Gap 11 mmol/L (10-20); BUN (Urea Nitrogen) 25 mg/dL (9.8-20.1); Bilirubin, Total 0.4 mg/dL (0.2-1.2); Calc. Creatinine Clearance 0 mL/min (70-130); Calcium 9.3 mg/dL (7.8-10.44); Carbon Dioxide 27 mmol/L (23-31); Chloride 98 mmol/L (98-107); Estimated GFR-MDRD 75; Globulin 2.8 g/dL (2.4-3.5); Glucose 122 mg/dL (80-115); Lipase 11 U/L (8-78); Potassium 4.1 mmol/L (3.5-5.1); Protein, Total 6.7 g/dL (6.0-8.3); Sodium 132 mmol/L (136-145)
== END 2019-07-30 19:08 | disposition home or self-care (01) ==
LOC: ERS 13:30
DX: R10.11 Right upper quadrant pain (principal); M54.9 Dorsalgia, unspecified; I10 Essential (primary) hypertension; J44.9 Chronic obstructive pulmonary disease, unspecified; E78.5 Hyperlipidemia, unspecified; F41.9 Anxiety disorder, unspecified; F32.9 Major depressive disorder, single episode, unspecified; Z87.891 Personal history of nicotine dependence; Z79.899 Other long term (current) drug therapy
CPT/HCPCS: 36415; 74177; 80053; 81003; 83690; 85025; 87086; 96374; J1885; Q9966

== ENCOUNTER 2019-11-11 08:17 | Outpatient (CLI) | payer OTHER ==
--- NOTE | 2019-11-11 09:06 | RAD ---
EXAM: XR Pelvis AP STANDARD PROVIDED CLINICAL HISTORY: Pain FINDINGS: There is no evidence for fracture or other acute osseous abnormality. Alignment appears anatomic. Radha nt spaces appear preserved. IMPRESSION: No evidence for an acute osseous abnormality or significant arthropathy.
--- NOTE | 2019-11-11 09:07 | RAD ---
EXAM: XR Lumbar Spine 2 Or 3 View PROVIDED CLINICAL HISTORY: Back pain COMPARISON: None FINDINGS: 5 nonrib-bearing lumbar-type vertebral bodies are present. Lumbar alignment appears normal. There is no evidence for abnormal translational motion with flexion and extension. Disc space narrowing and endplate degenerative changes are conspicuous at L4-5. Multilevel facet arthritis changes are seen. V ascular calcification is noted. Vertebral body heights appear preserved. IMPRESSION: No evidence for abnormal translational motion with flexion and extension.
== END 2019-11-11 08:18 | disposition home or self-care (01) ==
LOC: RAD 08:17
PROVIDERS: ATTEND Nurse Practitioner Family
DX: M47.816 Spondylosis without myelopathy or radiculopathy, lumbar region (principal)
CPT/HCPCS: 72100; 72170

== ENCOUNTER 2020-06-08 07:37 | Outpatient (CLI) | payer OTHER ==
[2020-06-09 13:12] LABS: SARS-CoV-2 MS2 Positive; SARS-CoV-2 N Gene Negative; SARS-CoV-2 S Gene Negative; SARS-CoV-2 by NAA Not Detected (NotDetected); SARS-CoV-2 orf1ab Negative
== END 2020-06-08 07:38 | disposition home or self-care (01) ==
LOC: LABBT 07:37
PROVIDERS: ATTEND Internal Medicine Gastroenterology
DX: Z01.812 Encounter for preprocedural laboratory examination (principal); Z11.59 Encounter for screening for other viral diseases; K51.919 Ulcerative colitis, unspecified with unspecified complications
CPT/HCPCS: 87635; U0003

== ENCOUNTER 2022-01-04 08:50 | Outpatient (CLI) | payer MEDICARE, OTHER | END 2022-01-04 08:51 | disposition home or self-care (01) | LOC: BICRAD 08:50 | PROVIDERS: ATTEND Nurse Practitioner Family | DX: M25.562 Pain in left knee (principal) ==

== ENCOUNTER 2022-05-05 10:47 | Outpatient (CLI) | payer MEDICARE, MEDICAID | END 2022-05-05 10:48 | disposition home or self-care (01) | LOC: BICMAMMO 10:47 | PROVIDERS: ATTEND Family Medicine | DX: Z12.31 Encounter for screening mammogram for malignant neoplasm of breast (principal); Z13.820 Encounter for screening for osteoporosis; M85.89 Other specified disorders of bone density and structure, multiple sites; Z91.89 Other specified personal risk factors, not elsewhere classified | CPT/HCPCS: 77063; 77067; 77080 ==

== ENCOUNTER 2022-05-12 08:58 | Outpatient (CLI) | payer MEDICARE, MEDICAID | END 2022-05-12 08:59 | disposition home or self-care (01) | LOC: MRI 08:58 | PROVIDERS: ATTEND Specialist | DX: M47.22 Other spondylosis with radiculopathy, cervical region (principal); M48.02 Spinal stenosis, cervical region | CPT/HCPCS: 72141 ==

== ENCOUNTER 2022-10-06 18:33 | Emergency (ER) | payer OTHER, MEDICAID ==
[2022-10-06] MEDS ORDERED: Morphine 4 MG/ML VIAL ONE (19:34)
[2022-10-06] MEDS ORDERED: Ketorolac Tromethamine 30 MG/ML VIAL ONE (19:36)
== END 2022-10-06 20:21 | disposition home or self-care (01) ==
LOC: ERS 18:33
DX: S42.202A Unspecified fracture of upper end of left humerus, initial encounter for closed fracture (principal); I10 Essential (primary) hypertension; E78.5 Hyperlipidemia, unspecified; J44.9 Chronic obstructive pulmonary disease, unspecified; Z87.891 Personal history of nicotine dependence; W01.0XXA Fall on same level from slipping, tripping and stumbling without subsequent striking against object, initial encounter
CPT/HCPCS: 96372; J1885; J2270

== ENCOUNTER 2023-10-26 12:31 | Outpatient (CLI) | payer OTHER, MEDICAID ==
[2023-10-26 13:25] LABS: #Basophils 0.1 10x3/uL (0.0-0.2); #Eosinphils 0.3 10x3/uL (0.0-0.5); #Monocytes 0.6 10x3/uL (0.0-1.1); #Neutrophils 5.9 10x3/uL (1.5-8.4); %Basophils 0.8 % (0.0-2.0); %Eosinophils 3.1 % (0.0-6.0); %Monocytes 5.8 % (0.0-10.0); Hematocrit 42.9 % (34.9-44.5); Hemoglobin 14.3 g/dL (12.0-15.5); Mean Corpuscular HGB CONC 33.3 g/dL (32.0-36.0); Mean Corpuscular Hemoglobin 30.6 pg (27.0-33.0); Mean Corpuscular Volume 91.9 fl (81.6-98.3); Mean Platelet Volume 9.5 fl (7.4-10.4); Platelet Count 248 10x3/uL (150-450); RBC Distribution Width 12.1 % (11.5-14.5); Red Blood Cell (RBC) Count 4.67 10x6/uL (3.90-5.03); White Blood Cell (WBC) Count 9.8 10x3/uL (3.5-10.5)
[2023-10-26 13:40] LABS: INR-International Normal Ratio 0.9
[2023-10-26 13:44] LABS: Anion Gap 13 mmol/L (10-20); BUN (Urea Nitrogen) 20 mg/dL (9.8-20.1); Calc. Creatinine Clearance 0 mL/min (70-130); Calcium 8.9 mg/dL (7.8-10.44); Carbon Dioxide 26 mmol/L (23-31); Chloride 104 mmol/L (98-107); Estimated GFR 96; Glucose 105 mg/dL (80-115); Potassium 4.1 mmol/L (3.5-5.1); Sodium 139 mmol/L (136-145)
== END 2023-10-26 12:32 | disposition home or self-care (01) ==
LOC: LABBT 12:31
PROVIDERS: ATTEND Orthopaedic Surgery
DX: Z01.818 Encounter for other preprocedural examination (principal); S42.292K Other displaced fracture of upper end of left humerus, subsequent encounter for fracture with nonunion
CPT/HCPCS: 80048; 85025; 85610; 93005; 93010

== ENCOUNTER 2023-11-01 05:42 | Inpatient (IN) | payer OTHER, MEDICAID ==
[2023-10-26 13:05] VITALS: BMI 33.1
[2023-11-01] MEDS ORDERED: Ropivacaine 0.5% HCl/PF (150 MG/30 ML VIAL) ONE (07:30)
[2023-11-01] MEDS ORDERED: fentaNYL 50 mcg/mL 1 mL Vial ONE (07:30)
[2023-11-01] MEDS ORDERED: Ropivacaine 0.2% HCl/PF 20 ML ONE (07:30)
[2023-11-01] MEDS ORDERED: Midazolam HCl 2 mg/2 ml Vial ONE (07:30)
[2023-11-01] MEDS ORDERED: Tranexamic Acid 1,000 MG/10 ML VIAL ONE ×2 (08:21→13:20)
[2023-11-01] MEDS ORDERED: Sodium Chloride 0.9% 100 ML ONE ×2 (08:21→10:10)
[2023-11-01] MEDS ORDERED: Vancomycin (BATCH) 1.5 GM/300 ML BAG ONE (08:21)
[2023-11-01] MEDS ORDERED: fentaNYL 50 mcg/mL 1 mL Vial SLOW IVP PRN (09:43)
[2023-11-01] MEDS ORDERED: traMADol HCl 50 MG TAB PO PRN ×2 (09:45)
[2023-11-01] MEDS ORDERED: Zolpidem Tartrate 5 MG TAB PO PRN (09:45)
[2023-11-01] MEDS ORDERED: Ropivacaine 0.2% 550 ML 550 ML NERVE BLCK SCH (09:45)
[2023-11-01] MEDS ORDERED: HYDROcodone/Acetaminophen 10/325 mg Tablet PO PRN ×2 (09:45)
[2023-11-01] MEDS ORDERED: Promethazine HCl 25 MG/ML VIAL IM PRN (09:45)
[2023-11-01] MEDS ORDERED: Ondansetron PF 4 MG/2 ML Vial IVP PRN (09:45)
[2023-11-01] MEDS ORDERED: Milk Of Magnesia 30 ML UDCUP PO PRN (10:03)
[2023-11-01] MEDS ORDERED: diphenhydrAMINE 50 MG CAP PO PRN (10:03)
[2023-11-01] MEDS ORDERED: Bisacodyl 10 MG SUPP PR PRN (10:03)
[2023-11-01] MEDS ORDERED: oxyCODONE/Acetaminophen 5 mg/325 mg Tablet PO PRN (10:05)
[2023-11-01] MEDS ORDERED: CEFAZOLIN 2 GM VIAL ONE (10:10)
[2023-11-01] MEDS ORDERED: Rocuronium Bromide 10 MG/ML (10ML VIAL) ONE (10:15)
[2023-11-01] MEDS ORDERED: Lidocaine 2% PF 5 ML VIAL ONE (10:15)
[2023-11-01] MEDS ORDERED: PROPOFOL 20 ML ONE (10:15)
[2023-11-01] MEDS ORDERED: fentaNYL PF 100 MCG/2 ML SYRINGE ONE (10:15)
[2023-11-01] MEDS ORDERED: Lidocaine 1% PF 5 ML VIAL ONE (10:26)
[2023-11-01] MEDS ORDERED: Ketorolac Tromethamine 30 MG/ML VIAL ONE (10:54)
[2023-11-01] MEDS ORDERED: Dexamethasone 20 MG/5 ML VIAL ONE (10:54)
[2023-11-01] MEDS ORDERED: Ondansetron PF 4 MG/2 ML Vial ONE (10:54)
[2023-11-01] MEDS ORDERED: ePHEDrine Sulfate 50 MG/10 ML VIAL ONE (11:12)
[2023-11-01] MEDS ORDERED: Thrombin 5000 UNITS/5 ML VIAL ONE (12:35)
[2023-11-01] MEDS ORDERED: SUGAMMADEX SODIUM 200 MG/2 ML VIAL ONE (12:57)
[2023-11-01] MEDS: Ketorolac Tromethamine 30 MG/ML VIAL IVP SCH ×3 (16:21→23:44)
[2023-11-01] MEDS: Sodium Chloride 0.9% 1,000 ML IV SCH (17:04)
[2023-11-01] MEDS: CEFAZOLIN 2 GM in Sodium Chloride 0.9% 100 ML IVPB SCH (17:04)
[2023-11-01] MEDS ORDERED: lamoTRIgine 100 MG TAB PO SCH (21:00)
[2023-11-01] MEDS ORDERED: DULoxetine 30 MG CAP PO SCH (21:00)
[2023-11-01] MEDS ORDERED: Atorvastatin Calcium 40 MG TAB PO SCH (21:00)
[2023-11-01] MEDS ORDERED: Gabapentin 300 MG CAP PO SCH (21:00)
[2023-11-01] MEDS: Methocarbamol 500 MG TAB PO SCH (21:53)
[2023-11-01] MEDS: Famotidine 20 MG TAB PO SCH (21:53)
[2023-11-02] MEDS: CEFAZOLIN 2 GM in Sodium Chloride 0.9% 100 ML IVPB SCH (01:32)
[2023-11-02 05:38] LABS: Hematocrit 36.5 % (36.0-47.0); Hemoglobin 11.8 g/dL (12.0-16.0); Mean Corpuscular HGB CONC 32.3 g/dL (32.0-36.0); Mean Corpuscular Volume 95.8 fl (78.0-98.0); Mean Platelet Volume 9.8 fL (7.4-10.4); Platelet Count 197 10x3/uL (130-400); RBC Distribution Width 12.6 % (11.5-14.5); Red Blood Cell (RBC) Count 3.81 mill/uL (4.20-5.40); White Blood Cell (WBC) Count 13.4 10x3/uL (4.8-10.8)
[2023-11-02] MEDS: Ketorolac Tromethamine 30 MG/ML VIAL IVP SCH ×2 (05:41→13:09)
[2023-11-02] MEDS: Sodium Chloride 0.9% 1,000 ML IV SCH (07:39)
[2023-11-02] MEDS ORDERED: Aspirin 81 mg Enteric Coated Tablet PO SCH (09:00)
[2023-11-02] MEDS ORDERED: Mirabegron ER 25 MG ER.TAB PO SCH (09:00)
[2023-11-02] MEDS ORDERED: FLU VACC QS2023(65UP)/MF59C/PF 60 MCG/0.5 ML SYRINGE IM ONE (09:00)
[2023-11-02] MEDS ORDERED: Lisinopril 2.5 MG TAB PO SCH (09:00)
[2023-11-02] MEDS ORDERED: Gabapentin 300 MG CAP PO SCH (09:00)
[2023-11-02] MEDS: Methocarbamol 500 MG TAB PO SCH (09:41)
[2023-11-02] MEDS: Famotidine 20 MG TAB PO SCH (09:41)
[2023-11-02 12:47] VITALS: BP 159/73; TEMP 98.1
== END 2023-11-02 14:55 | disposition home or self-care (01) | DRG 483 ==
LOC: SDC 05:42 → SURG A 07:19 → SJJU 15:54
PROVIDERS: ADMIT Orthopaedic Surgery; ATTEND Orthopaedic Surgery
PROC: 0RRK00Z Replacement of Left Shoulder Joint with Reverse Ball and Socket Synthetic Substitute, Open Approach (ICD-10-PCS; principal; 2023-11-01)
DX: S42.202K Unspecified fracture of upper end of left humerus, subsequent encounter for fracture with nonunion (principal); J44.9 Chronic obstructive pulmonary disease, unspecified; I10 Essential (primary) hypertension; E11.9 Type 2 diabetes mellitus without complications; F17.210 Nicotine dependence, cigarettes, uncomplicated; F31.9 Bipolar disorder, unspecified; Z79.899 Other long term (current) drug therapy; Z79.82 Long term (current) use of aspirin; Z98.890 Other specified postprocedural states; Z90.89 Acquired absence of other organs; Z90.49 Acquired absence of other specified parts of digestive tract; X58.XXXA Exposure to other specified factors, initial encounter
CPT/HCPCS: 36415; 85027; 90471; 90694; A4306; C1713; C1776; G0008; J1100; J1885; J2001; J2250; J2405; J2704; J2795; J3010; J3370; J3490; J7050

== ENCOUNTER 2024-03-14 11:30 | Outpatient (CLI) | payer OTHER | END 2024-03-14 11:31 | disposition home or self-care (01) | LOC: BICCT 11:30 | PROVIDERS: ATTEND Family Medicine | DX: Z12.2 Encounter for screening for malignant neoplasm of respiratory organs (principal); F17.210 Nicotine dependence, cigarettes, uncomplicated; R91.1 Solitary pulmonary nodule | CPT/HCPCS: 71271 ==

== ENCOUNTER 2024-05-29 12:01 | Outpatient (CLI) | payer OTHER ==
[2024-05-29 13:48] LABS: #Basophils 0.07 10x3/uL (0.0-0.2); #Monocytes 0.39 10x3/uL (0.0-1.1); #Neutrophils 5.45 10x3/uL (1.5-8.4); %Basophils 0.9 % (0.0-2.0); %Eosinophils 1.3 % (0.0-6.0); %Lymphocytes 22.2 % (18.0-47.0); %Neutrophils 70.2 % (40.0-75.0); Hematocrit 43.3 % (34.9-44.5); Hemoglobin 14.7 g/dL (12.0-15.5); Mean Corpuscular HGB CONC 33.9 g/dL (32.0-36.0); Mean Corpuscular Hemoglobin 30.8 pg (27.0-33.0); Mean Corpuscular Volume 90.6 fL (81.6-98.3); Mean Platelet Volume 9.8 fL (7.4-10.4); Platelet Count 256 10x3/uL (150-450); RBC Distribution Width 12.6 % (11.5-14.5); Red Blood Cell (RBC) Count 4.78 10x6/uL (3.90-5.03); White Blood Cell (WBC) Count 7.8 10x3/uL (3.5-10.5)
[2024-05-29 14:03] LABS: Anion Gap 13 mmol/L (10-20); BUN (Urea Nitrogen) 14 mg/dL (9.8-20.1); Calc. Creatinine Clearance 0 mL/min (70-130); Calcium 9.5 mg/dL (7.8-10.44); Carbon Dioxide 26 mmol/L (23-31); Chloride 107 mmol/L (98-107); Estimated GFR 97; Glucose 103 mg/dL (80-115); Potassium 4.1 mmol/L (3.5-5.1); Sodium 142 mmol/L (136-145)
== END 2024-05-29 12:02 | disposition home or self-care (01) ==
LOC: LABBT 12:01
PROVIDERS: ATTEND Orthopaedic Surgery
DX: Z01.818 Encounter for other preprocedural examination (principal); Z47.1 Aftercare following joint replacement surgery; Z96.612 Presence of left artificial shoulder joint
CPT/HCPCS: 80048; 85025; 93005; 93010

== ENCOUNTER 2024-08-15 10:21 | Outpatient (CLI) | payer OTHER | END 2024-08-15 10:22 | disposition home or self-care (01) | LOC: BICMAMMO 10:21 | PROVIDERS: ATTEND Family Medicine | DX: M85.89 Other specified disorders of bone density and structure, multiple sites (principal) | CPT/HCPCS: 77080 ==

== ENCOUNTER 2025-06-12 09:56 | Outpatient (CLI) | payer MEDICARE | END 2025-06-12 09:57 | disposition home or self-care (01) | LOC: BICCT 09:56 | PROVIDERS: ATTEND Family Medicine | DX: Z12.2 Encounter for screening for malignant neoplasm of respiratory organs (principal); F17.210 Nicotine dependence, cigarettes, uncomplicated | CPT/HCPCS: 71271 ==

== ENCOUNTER 2025-06-12 10:01 | Outpatient (CLI) | payer MEDICARE | END 2025-06-12 10:02 | disposition home or self-care (01) | LOC: BICMAMMO 10:01 → BICCT 10:02 | PROVIDERS: ATTEND Family Medicine | DX: Z12.31 Encounter for screening mammogram for malignant neoplasm of breast (principal); Z91.89 Other specified personal risk factors, not elsewhere classified | CPT/HCPCS: 77063; 77067 ==

== ENCOUNTER 2025-09-01 09:01 | Outpatient (CLI) | payer MEDICARE | END 2025-09-01 09:02 | disposition home or self-care (01) | LOC: ULT 09:01 | PROVIDERS: ATTEND Student in an Organized Health Care Education/Training Program | DX: R22.0 Localized swelling, mass and lump, head (principal); D49.89 Neoplasm of unspecified behavior of other specified sites | CPT/HCPCS: 76999 ==

== ENCOUNTER 2025-09-18 08:08 | Outpatient (CLI) | payer MEDICARE, OTHER ==
[2025-09-18 09:06] LABS: Estimated GFR - POC 94.0
[2025-09-18] MEDS ORDERED: Iopamidol 370 76% 100 ML VIAL ONE (11:09)
== END 2025-09-18 08:09 | disposition home or self-care (01) ==
LOC: CT 08:08
PROVIDERS: ATTEND Family Medicine
DX: R22.0 Localized swelling, mass and lump, head (principal)
CPT/HCPCS: 36415; 70491; 82565

== ENCOUNTER → 2025-10-21 | Day surgery (SDC) | payer MEDICARE, OTHER ==
[~2025-10-21] MED LIST: Lidocaine 1% w/Epinephrine 1:100K 20 ML VIAL ONE; Sodium Bicarbonate 2.5 MEQ/5 ML SDV ONE
== END ==
LOC: ULT 11:56
PROVIDERS: ATTEND Family Medicine
DX: R22.1 Localized swelling, mass and lump, neck (principal); J30.9 Allergic rhinitis, unspecified; I10 Essential (primary) hypertension; E11.9 Type 2 diabetes mellitus without complications; Z90.49 Acquired absence of other specified parts of digestive tract; Z88.8 Allergy status to other drugs, medicaments and biological substances; F17.210 Nicotine dependence, cigarettes, uncomplicated; Z79.899 Other long term (current) drug therapy; Z79.84 Long term (current) use of oral hypoglycemic drugs
CPT/HCPCS: 10005; 88307; 88333; 88341; 88342